=== PATIENT | female | born 1955 | race Two or more races ===

== ENCOUNTER 2024-02-11 15:28 | Emergency (ER) | payer OTHER ==
[~2024-02-11] VITALS: Ht 157.5 cm; Wt 65.8 kg
[2024-02-11] MEDS ORDERED: CRESTOR40 MG (15:43)
[2024-02-11] MEDS ORDERED: LEVOTHYROXINE25 MCG (15:43)
[2024-02-11] MEDS ORDERED: COZAAR25 MG (15:43)
[2024-02-11 16:37] LABS: HEMATOCRIT 36.6 % (36.0-45.00); HEMOGLOBIN 12.7 g/dL (12.0-15.00); MEAN CELL VOLUME 93.6 fL (80.00-100.00); MEAN CORPUSCULAR HEMOGLOBIN 32.4 pg (27.00-32.0); MEAN CORPUSCULAR HGB CONC 34.6 g/dl (32.0-36.0); PLATELET COUNT 187 K/uL (150-450); RED BLOOD COUNT 3.91 M/uL (4.00-6.00); RED CELL DISTRIBUTION WIDTH 12.8 % (11.5-14.5)
[2024-02-11 17:09] LABS: ALBUMIN 3.9 gm/dL (3.4-5.0); BILIRUBIN TOTAL 0.33 mg/dL (0.3-1.2); BILIRUBIN,CONJUGATED 0.1 mg/dL (0.0-0.2); BILIRUBIN,UNCONJUGATED 0.23 mg/dL (0.0-0.6); CALCIUM 9.5 mg/dL (8.5-10.1); CREATININE SERUM 0.73 mg/dL (0.55-1.02); GFR 79.05; GLOBULINA 4.1 G/DL (2.4-3.5); POTASSIUM 3.94 mEq/L (3.5-5.1)
== END 2024-02-11 18:10 | disposition home or self-care (01) ==
LOC: ER 15:30 → EDBD 15:54 → ER 18:10
DX: R53.81 Other malaise (principal); J40 Bronchitis, not specified as acute or chronic; Z20.822 Contact with and (suspected) exposure to COVID-19; Z88.6 Allergy status to analgesic agent; Z88.8 Allergy status to other drugs, medicaments and biological substances